=== PATIENT | female | born 1990 | race Caucasian/White ===

== ENCOUNTER 2018-05-28 06:57 | Inpatient (IN) ==
[2018-05-28] MEDS: LACTATED RINGERS 1,000 ML IV SCH (07:26)
[2018-05-28] MEDS ORDERED: MEPERIDINE 50 MG/1 ML VIAL IV PRN (07:36)
[2018-05-28] MEDS ORDERED: BUTORPHANOL 1 MG/ML VIAL IV PRN (07:36)
[2018-05-28] MEDS ORDERED: BUTORPHANOL 2 MG/ML VIAL IV PRN (07:36)
[2018-05-28] MEDS ORDERED: ONDANSETRON 4 MG/2 ML VIAL IV PRN ×2 (07:36→13:06)
[2018-05-28] MEDS ORDERED: PROMETHAZINE 25 MG/1 ML VIAL IM ONE (07:42)
[2018-05-28] MEDS ORDERED: ePHEDrine 50 MG/ML AMP IV PRN (07:42)
[2018-05-28] MEDS ORDERED: NALOXONE 0.4 MG/ML VIAL IV PRN (07:42)
[2018-05-28] MEDS ORDERED: diphenhydrAMINE 50 MG/1 ML VIAL IV PRN ×2 (07:42)
[2018-05-28] MEDS ORDERED: hydrOXYzine HCL 25 MG/1 ML VIAL IM PRN (07:42)
[2018-05-28] MEDS ORDERED: CITRIC ACID/SODIUM CITRATE 30 ML UDCUP PO ONE (07:42)
[2018-05-28] MEDS ORDERED: LACTATED RINGERS 1,000 ML IV ONE (07:42)
[2018-05-28] MEDS ORDERED: FAMOTIDINE 20 MG/2 ML VIAL IV ONE (07:42)
[2018-05-28] MEDS ORDERED: ONDANSETRON 4 MG/2 ML VIAL IV ONE (07:42)
[2018-05-28] MEDS: ALUMINUM/MAGNES/SIMETH MAX STR 30 ML UDCUP PO PRN (07:50)
[2018-05-28 07:51] LABS: Basophils % 0.1 % (0.0-0.8); Eosinophils % 0.5 % (0.00-10.9); Hematocrit 32.1 VOL% (35.7-47.0); Immature Granulocytes % 0.2 %; Immature Granulocytes Absolute 0.02 #; Lymphocytes # 2.5 10*3/uL (1.4-4.0); Lymphocytes % 29.1 % (21.3-54.2); Mean Corpuscular HGB Conc 34.3 GM/DL (32-36); Mean Corpuscular Hemoglobin 30 PG (27-34); Mean Corpuscular Volume 86.5 FL (87-102); Mean Platelet Volume 10.8 FL (9.6-12.0); Monocytes # 0.6 10*3/uL (0.11-0.8); Monocytes % 7.4 % (1.7-12.7); Neutrophils # 5.4 10*3/uL (1.4-7.4); Neutrophils % 62.7 % (38.7-73.9); Platelet Count 285 T/CUMM (130-400); Red Blood Count 3.71 MC/CUMM (3.8-5.5); Red Cell Distribution Width 13.6 % (9.3-17.3); White Blood Count 8.6 T/CUMM (4-12)
[2018-05-28] MEDS: OXYTOCIN/LR 20 UNIT/1,000 ML BAG IV SCH (07:57)
[2018-05-28] MEDS ORDERED: LANOLIN 50% CREAM 0.3 OZ TUBE TOP PRN (13:06)
[2018-05-28] MEDS ORDERED: oxyCODONE/ACETAMINOPHEN 5-325 MG TABLET PO PRN (13:06)
[2018-05-28] MEDS ORDERED: WITCH HAZEL PADS 100/JAR TOP PRN (13:06)
[2018-05-28] MEDS ORDERED: BISACODYL 10 MG SUPP RECTAL PRN (13:06)
[2018-05-28] MEDS ORDERED: MEASLES/MUMPS/RUBELLA VACCINE 0.5 ML VIAL SUBCUT ONE (13:06)
[2018-05-28] MEDS ORDERED: DIPH/TET/ACEL PERT BOOSTER VACCINE 0.5 ML VIAL IM ONE (13:06)
[2018-05-28] MEDS ORDERED: BENZOCAINE 20%/MENTHOL 0.5% SPRAY 56 GM CAN TOP PRN (13:06)
[2018-05-28] MEDS ORDERED: RHO(D) IMMUNE GLOBULIN 300 MCG SYRINGE IM ONE (13:06)
[2018-05-28] MEDS ORDERED: OXYTOCIN/LR 20 UNIT/1,000 ML BAG IV ONE (13:06)
[2018-05-28] MEDS ORDERED: ACETAMINOPHEN 325 MG TABLET PO PRN (13:06)
[2018-05-28] MEDS ORDERED: HYDROCORTISONE 2.5% RECTAL CREAM 30 GM TUBE TOP PRN (13:06)
[2018-05-28] MEDS: IBUPROFEN 800 MG TABLET PO PRN (17:15)
[2018-05-28] MEDS: DOCUSATE SODIUM 100 MG CAPSULE PO SCH (20:59)
[2018-05-29] MEDS: ALUMINUM/MAGNES/SIMETH MAX STR 30 ML UDCUP PO PRN (00:25)
[2018-05-29] MEDS: oxyCODONE/ACETAMINOPHEN 5-325 MG TABLET PO PRN ×2 (00:28→18:04)
[2018-05-29] MEDS: IBUPROFEN 800 MG TABLET PO PRN ×4 (00:28→21:01)
[2018-05-29 03:58] LABS: Basophils % 0.3 % (0.0-0.8); Eosinophils # 0.1 10*3/uL (0.0-0.87); Eosinophils % 0.6 % (0.00-10.9); Hematocrit 31.9 VOL% (35.7-47.0); Hemoglobin 10.6 GM/DL (12.0-16.0); Immature Granulocytes % 0.3 %; Immature Granulocytes Absolute 0.04 #; Lymphocytes # 2.9 10*3/uL (1.4-4.0); Lymphocytes % 24.9 % (21.3-54.2); Mean Corpuscular HGB Conc 33.2 GM/DL (32-36); Mean Corpuscular Hemoglobin 30 PG (27-34); Mean Corpuscular Volume 89.4 FL (87-102); Mean Platelet Volume 10.9 FL (9.6-12.0); Monocytes # 0.8 10*3/uL (0.11-0.8); Monocytes % 7.2 % (1.7-12.7); Neutrophils # 7.6 10*3/uL (1.4-7.4); Neutrophils % 66.7 % (38.7-73.9); Platelet Count 259 T/CUMM (130-400); Red Blood Count 3.57 MC/CUMM (3.8-5.5); Red Cell Distribution Width 13.5 % (9.3-17.3); White Blood Count 11.4 T/CUMM (4-12)
[2018-05-29] MEDS: DOCUSATE SODIUM 100 MG CAPSULE PO SCH ×2 (08:39→21:01)
[2018-05-29] MEDS ORDERED: ACETAMINOPHEN/CODEINE 300-30 MG TABLET PO PRN (20:29)
[2018-05-29] MEDS: fentaNYL 2 MCG/ROPIV 0.2% EPID 100 ML EPIDURAL SCH (20:31)
[2018-05-29] MEDS: LACTATED RINGERS 1,000 ML IV SCH (20:39)
[2018-05-29] MEDS: OXYTOCIN/LR 20 UNIT/1,000 ML BAG IV SCH (20:39)
[2018-05-30] MEDS: IBUPROFEN 800 MG TABLET PO PRN (03:19)
[2018-05-30] MEDS: fentaNYL 2 MCG/ROPIV 0.2% EPID 100 ML EPIDURAL SCH (03:20)
[2018-05-30] MEDS: LACTATED RINGERS 1,000 ML IV SCH (06:13)
[2018-05-30 07:31] VITALS: BP 103/61
[2018-05-30] MEDS: DOCUSATE SODIUM 100 MG CAPSULE PO SCH (09:53)
== END 2018-05-30 12:15 | disposition home or self-care (01) | DRG 775 ==
LOC: N.LDOUT 06:57 → N.LD 06:58 → N.OB 15:49
PROVIDERS: ADMIT Obstetrics & Gynecology; ATTEND Obstetrics & Gynecology